=== PATIENT | male | born 1965 | race Caucasian/White ===

== ENCOUNTER → 2016-08-24 | Day surgery (SDC) | payer BC ==
[~2016-08-24] VITALS: Ht 157.5 cm; Wt 59.0 kg
[~2016-08-24] MED LIST: ASCO25TA PO; AVEL1TAB PO; FLUTISP; LIDOCAINE 2% INJ 100 MG/5 ML SDV (FOR ANES.) As Ordered ONE; LR 1,000 ML IV SCH; MIDAZOLAM INJ 2 MG/2 ML VIAL (J2250) As Ordered ONE; MULT1TAB10 PO; OCEA0.654; ONDANSETRON 4MG/2ML VIAL (J2405) As Ordered ONE; PROPOFOL 200 MG/20 ML VIAL As Ordered ONE; ROCURONIUM BROMIDE 50 MG/5 ML VIAL As Ordered ONE; VITA100037 PO; VITA500T53 PO; fentaNYL 100 MCG/2 ML INJECTION (J3010) As Ordered ONE
[2016-08-24 13:43] VITALS: BP 140/77
== END | disposition home or self-care (01) ==
LOC: M SDC 13:26
PROVIDERS: ATTEND Specialist
DX: J35.01 Chronic tonsillitis (principal); Z53.20 Procedure and treatment not carried out because of patient's decision for unspecified reasons

== ENCOUNTER → 2016-08-31 | Day surgery (SDC) | payer BC ==
[~2016-08-31] MED LIST changes: +ALBUTEROL SULFATE 2.5 MG/0.5 ML INH NEB SOLN As Ordered ONE; +BUPIVACAINE HCL 0.5% 30 ML VIAL As Ordered ONE; +CETACAINE SPRAY 20GM (FLOOR STOCK) As Ordered ONE; +GLYCOPYRROLATE INJ 0.2 MG/ML 2 ML VIAL As Ordered ONE; +HYDROmorphone HCL 1 MG/ML SYRINGE (J1170) IV PRN; +IBUPROFEN 100 MG/5 ML SUSP UDC DYE FREE PO ONE; +IBUPROFEN 800 MG TAB PO PRN; -LIDOCAINE 2% INJ 100 MG/5 ML SDV (FOR ANES.) As Ordered ONE; +LIDOCAINE 2% INJ 100 MG/5 ML SYRINGE As Ordered ONE; +NEOSTIGMINE 1MG/ML 5 ML SYRINGE (J2710) As Ordered ONE; +ONDANSETRON 4MG/2ML VIAL (J2405) IV PRN; +PERCOCET 5MG/325MG TAB PO PRN; +dexameTHASONE 4 MG/ML 1ML VIAL (J1100) As Ordered ONE; -fentaNYL 100 MCG/2 ML INJECTION (J3010) As Ordered ONE; +fentaNYL 100 MCG/2 ML INJECTION (J3010) IV PRN; +fentaNYL 250 MCG/5 ML INJECTION (J3010) As Ordered ONE
[2016-08-31 13:05] VITALS: BP 135/82
--- NOTE | 2016-09-08 13:46 | RO ---
DATE OF OPERATION: 08/31/2016 PREOPERATIVE DIAGNOSIS: Left tonsil mass. POSTOPERATIVE DIAGNOSIS: Left tonsil mass. PROCEDURE: Left tonsillectomy, direct laryngoscopy. SURGEON: Dr. Kamaljit Perez ELECTROTYPE FINISHER: ANESTHESIA: INDICATION: This is a 50-year-old patient who has been troubled by left-sided throat pain, as well as neck pain. He says he has had increased incidence of left tonsil swelling and pain that comes and goes unpredictably. The purpose of today was to do a excisional biopsy of the left tonsil to rule out a tumor, as well as a direct laryngoscopy to inspect the upper airway. DESCRIPTION OF PROCEDURE: Satisfactory general endotracheal anesthesia administered, the patient placed in Trendelenburg position, and a Mati-Po gag inserted. The left tonsil was grasped with an Allis clamp, retracted out of its muscular fossa. Using cutting cautery, an incision was made on the anterior pillar 3 mm from its edge. The capsule of the tonsil was identified. Using a combination of cautery and blunt dissection, the tonsil was rolled medially out of its muscular fossa and right up to the avascular plane. There did not appear to be any evidence of invasion of the underlying constricted muscle, and the tonsil peeled out of this fossa normally. Once this tonsil was suspended on the inferior pole, coagulation current was used to amputate the tissue. Suction cautery was used to achieve hemostasis in the tonsil fossa. 0.50% Marcaine was injected into the surgical site. Next, a double-lighted Dedo laryngoscope was inserted into the oropharynx. Complete inspection of the oral cavity, hypopharynx, and larynx was performed. No abnormalities were found in the piriform fossa. Both cricoid regions were also clear. The scope was removed. Throat was suctioned. The patient was then awakened, extubated, and sent to recovery in satisfactory condition. He will discharged home on Hycet elixir for pain, and he will be seen by me in 1 week to discuss the results.
== END | disposition home or self-care (01) ==
LOC: M SDC 08:14
PROVIDERS: ATTEND Specialist
DX: D10.4 Benign neoplasm of tonsil (principal); Z88.0 Allergy status to penicillin; Z88.1 Allergy status to other antibiotic agents
CPT/HCPCS: 31525; 42826; 88305; J1100; J2250; J2405; J2710; J3010